=== PATIENT | male | born 1970 | race Caucasian/White ===

== ENCOUNTER 2019-02-01 09:33 | Day surgery (SDC) | payer OTHER ==
[~2019-02-01] VITALS: Ht 190.5 cm; Wt 124.9 kg
[2019-02-01 09:53] VITALS: BP 122/87; PULSE 48; TEMP 98.2
[2019-02-01 11:00] VITALS: BP 120/91; PULSE 76; TEMP 97.7
--- NOTE | 2019-02-01 11:00 | NUR ---
Pt to GI [facility] 7 via cart from [facility]. Pt denies any pain or nausea. Pt ambulates to recliner with stand by assistance. VSS. in room. Muffin, juice and water given per pt request. Will continue to monitor. Call light within reach.
[2019-02-01 11:15] VITALS: BP 129/89; PULSE 47
--- NOTE | 2019-02-01 11:15 | NUR ---
Pt sleeping. Respirations even and unlabored. Call light within reach.
[2019-02-01 11:30] VITALS: BP 108/74; PULSE 49
--- NOTE | 2019-02-01 11:30 | NUR ---
Pt continues to rest. Denies needs. Call light within reach.
--- NOTE | 2019-02-01 11:45 | NUR ---
Dishcharge instructions reviewed. Pt voices understanding. IV site discontinued with all parts intact. Pt up to dress. Call light within reach.
--- NOTE | 2019-02-01 11:52 | NUR ---
Pt escorted to private car via wheel chair. Pt accompanied home by his .
== END 2019-02-01 11:52 | disposition home or self-care (01) ==
LOC: SDCO 09:33
DX: Z12.11 Encounter for screening for malignant neoplasm of colon (principal); D12.2 Benign neoplasm of ascending colon; K62.1 Rectal polyp; E66.9 Obesity, unspecified; Z68.35 Body mass index [BMI] 35.0-35.9, adult
CPT/HCPCS: OP; J2250; J2405; J3010; J7030